=== PATIENT | female | born 1960 | race Caucasian/White ===

== ENCOUNTER 2019-08-10 13:38 | Emergency (ER) | payer MEDICAID ==
[~2019-08-10] VITALS: Ht 162.6 cm; Wt 137.0 kg
[~2019-08-10 13:38] MED LIST: METH-360 PO; ONDA8TAB9 PO
[2019-08-10 14:32] LABS: BASOPHILS % (AUTO) 0.4 % (0-1); EOSINOPHILS # (AUTO) 0.2 X10'3 (0-0.9); EOSINOPHILS % (AUTO) 2.8 % (0-6); HEMATOCRIT 33.6 % (35.0-45.0); HEMOGLOBIN 11.3 g/dl (12.0-16.0); LYMPHOCYTES # (AUTO) 1.2 X10'3 (1.1-4.8); LYMPHOCYTES % (AUTO) 14.5 % (21-51); MEAN CORPUSCULAR HEMOGLOBIN 27.7 PG (27.0-31.0); MEAN CORPUSCULAR HGB CONC 33.7 g/dL (33.0-36.5); MEAN CORPUSCULAR VOLUME 82.2 FL (78-98); MEAN PLATELET VOLUME 7.3 FL (7.4-10.4); MONOCYTES # (AUTO) 0.3 X10'3 (0-0.9); MONOCYTES % (AUTO) 4.2 % (2-12); NEUTROPHILS # (AUTO) 6.5 X10'3 (1.8-7.7); NEUTROPHILS % (AUTO) 78.1 % (42-75); PLATELET COUNT 341 X10'3 (140-440); RED BLOOD COUNT 4.08 X10'6 (4.20-5.60); RED CELL DISTRIBUTION WIDTH 16.2 % (11.5-14.5); WHITE BLOOD COUNT 8.3 X10'3 (4.5-11.0)
[2019-08-10 14:46] LABS: ALANINE AMINOTRANSFERASE 30 U/L (12-78); ALBUMIN 2.9 G/DL (3.4-5.0); ALBUMIN/GLOBULIN RATIO 0.8 (1.1-1.5); ALKALINE PHOSPHATASE 94 IU/L (46-116); ANION GAP 8 (8-16); ASPARTATE AMINO TRANSFERASE 19 U/L (10-37); BILIRUBIN,TOTAL 0.6 MG/DL (0.1-1.0); BLOOD UREA NITROGEN 11 MG/DL (7-18); BUN/CREATININE RATIO 11.5 (6.6-38.0); CALCIUM 8.4 MG/DL (8.5-10.1); CHLORIDE 106 MMOL/L (99-107); CREATININE 0.96 MG/DL (0.40-0.90); GLUCOSE 197 MG/DL (70-104); POTASSIUM 3.9 MMOL/L (3.5-5.1); SODIUM 140 MMOL/L (135-145); TOTAL CARBON DIOXIDE 26.3 MMOL/L (24-32); TOTAL PROTEIN 6.6 G/DL (6.4-8.2); eGFR 60 ML/MIN
[2019-08-10 15:37] VITALS: BP 151/62
== END 2019-08-10 15:41 | disposition home or self-care (01) ==
LOC: ER 13:38
DX: K51.90 Ulcerative colitis, unspecified, without complications (principal); R07.89 Other chest pain; I10 Essential (primary) hypertension; E11.9 Type 2 diabetes mellitus without complications; G89.29 Other chronic pain; F10.99 Alcohol use, unspecified with unspecified alcohol-induced disorder; Z86.2 Personal history of diseases of the blood and blood-forming organs and certain disorders involving the immune mechanism; Z88.8 Allergy status to other drugs, medicaments and biological substances; Z91.040 Latex allergy status; Z88.0 Allergy status to penicillin; Z79.899 Other long term (current) drug therapy; Y90.9 Presence of alcohol in blood, level not specified
CPT/HCPCS: 36415; 71045; 80053; 84484; 85025; 93005; 99284

== ENCOUNTER 2020-07-08 14:02 | Outpatient (CLI) | payer MEDICAID | END 2020-07-08 23:59 | disposition home or self-care (01) | LOC: RT 14:02 | PROVIDERS: ATTEND Physician Assistant | DX: R94.2 Abnormal results of pulmonary function studies (principal); J45.909 Unspecified asthma, uncomplicated | CPT/HCPCS: 94010 ==

== ENCOUNTER 2020-08-04 16:23 | Emergency (ER) | payer MEDICAID ==
[~2020-08-04] VITALS: Ht 160 cm; Wt 131.4 kg
[2020-08-04 16:41] VITALS: BP 188/71
== END 2020-08-04 18:29 | disposition home or self-care (01) ==
LOC: ER 16:23
DX: M25.561 Pain in right knee (principal); I10 Essential (primary) hypertension; G89.29 Other chronic pain; E11.9 Type 2 diabetes mellitus without complications; Z72.89 Other problems related to lifestyle; Z91.040 Latex allergy status; Z88.0 Allergy status to penicillin; Z88.8 Allergy status to other drugs, medicaments and biological substances; Z79.2 Long term (current) use of antibiotics; Z79.899 Other long term (current) drug therapy; Y93.89 Activity, other specified; Y92.89 Other specified places as the place of occurrence of the external cause; Y99.8 Other external cause status
CPT/HCPCS: 73564; 73610; 99284

== ENCOUNTER 2021-02-01 16:28 | Emergency (ER) | payer MEDICAID ==
[~2021-02-01] VITALS: Ht 160 cm; Wt 134.0 kg
[2021-02-01 16:41] VITALS: BP 176/75
[2021-02-01] MEDS ORDERED: ondansetron 4mg rapidly disintigrating tab PO ONE (18:55)
[2021-02-01] MEDS ORDERED: clindamycin 150mg capsule PO ONE (18:55)
[2021-02-01] MEDS ORDERED: triamcinolone acetonide 40mg/ml inj IM ONE (18:55)
[2021-02-01] MEDS ORDERED: ipratropium/albuterol 3ml nebule NEB ONE (18:55)
[2021-02-01] MEDS ORDERED: CLIN150C8 PO (18:56)
== END 2021-02-01 19:56 | disposition home or self-care (01) ==
LOC: ER 16:28
DX: L25.9 Unspecified contact dermatitis, unspecified cause (principal); K08.89 Other specified disorders of teeth and supporting structures; R21 Rash and other nonspecific skin eruption; I10 Essential (primary) hypertension; E11.9 Type 2 diabetes mellitus without complications; G89.29 Other chronic pain; Z86.2 Personal history of diseases of the blood and blood-forming organs and certain disorders involving the immune mechanism; Z72.89 Other problems related to lifestyle; Z88.8 Allergy status to other drugs, medicaments and biological substances; Z88.0 Allergy status to penicillin; Z88.6 Allergy status to analgesic agent; Z91.040 Latex allergy status; Z79.2 Long term (current) use of antibiotics; Z79.899 Other long term (current) drug therapy
CPT/HCPCS: 94640; 96372; 99283; J3301; 94760

== ENCOUNTER 2022-12-15 05:04 | Emergency (ER) | payer MEDICAID ==
[~2022-12-15] VITALS: Ht 160 cm; Wt 130.0 kg
[~2022-12-15 05:04] MED LIST changes: +CLIN150C8 PO
--- NOTE | 2022-12-15 05:45 | NUR ---
Approached by Fawad YOON to hold off on lab work for now.
[2022-12-15] MEDS ORDERED: meclizine 12.5mg tablet PO ONE (05:55)
[2022-12-15] MEDS ORDERED: ondansetron 4mg rapidly disintigrating tab PO ONE (05:55)
[2022-12-15] MEDS ORDERED: MECL-226 PO (06:00)
[2022-12-15] MEDS ORDERED: ONDA8TAB13 PO (06:00)
[2022-12-15] MEDS ORDERED: normal saline 1000ml 1,000 ML IV ONE (06:25)
--- NOTE | 2022-12-15 07:20 | NUR ---
rn attempting to get iv. unsuccessful and pt is afraid of needles. pt req 2nd rn try.
--- NOTE | 2022-12-15 07:40 | NUR ---
RN UNABLE TO SIGN OFF NS WITH SCANNER. WORK ORD PLACED.
[2022-12-15 07:51] LABS: BASOPHILS % (AUTO) 0.7 % (0-1); EOSINOPHILS % (AUTO) 0.2 % (0-6); HEMATOCRIT 31.8 % (35.0-45.0); HEMOGLOBIN 10.4 g/dl (12.0-16.0); LYMPHOCYTES # (AUTO) 0.9 X10'3 (1.1-4.8); LYMPHOCYTES % (AUTO) 14.6 % (21-51); MEAN CORPUSCULAR HEMOGLOBIN 26.5 PG (27.0-31.0); MEAN CORPUSCULAR HGB CONC 32.6 g/dL (33.0-36.5); MEAN CORPUSCULAR VOLUME 81.2 FL (78-98); MEAN PLATELET VOLUME 7.4 FL (7.4-10.4); MONOCYTES # (AUTO) 0.4 X10'3 (0-0.9); MONOCYTES % (AUTO) 5.8 % (2-12); NEUTROPHILS # (AUTO) 4.9 X10'3 (1.8-7.7); NEUTROPHILS % (AUTO) 78.7 % (42-75); PLATELET COUNT 293 X10'3 (140-440); RED BLOOD COUNT 3.92 X10'6 (4.20-5.60); RED CELL DISTRIBUTION WIDTH 14.4 % (11.5-14.5); WHITE BLOOD COUNT 6.2 X10'3 (4.5-11.0)
[2022-12-15 07:58] LABS: ALANINE AMINOTRANSFERASE 11 U/L (12-78); ALBUMIN 3.2 G/DL (3.4-5.0); ALBUMIN/GLOBULIN RATIO 0.8 (1.1-1.5); ALKALINE PHOSPHATASE 128 IU/L (46-116); ANION GAP 7 (8-16); ASPARTATE AMINO TRANSFERASE 12 U/L (10-37); BILIRUBIN,TOTAL 0.5 MG/DL (0.1-1.0); BLOOD UREA NITROGEN 13 MG/DL (7-18); CALCIUM 8.5 MG/DL (8.5-10.1); CHLORIDE 101 MMOL/L (99-107); CREATININE 1.08 MG/DL (0.40-0.90); GLUCOSE 159 MG/DL (70-104); POTASSIUM 4.1 MMOL/L (3.5-5.1); SODIUM 135 MMOL/L (135-145); TOTAL CARBON DIOXIDE 27.4 MMOL/L (24-32); eGFR 52 ML/MIN
[2022-12-15 09:45] LABS: CLARITY,URINE SLIGHTLY CLOUDY (Clear); COLOR,URINE STRAW (Yellow); GLUCOSE, URINE NEGATIVE (Neg); KETONES,URINE NEGATIVE (Neg); LEUKOCYTE ESTERASE ,URINE NEGATIVE (Neg); NITRITES, URINE NEGATIVE (Neg); OCCULT BLOOD,URINE TRACE-INTACT (Neg); PH,URINE 5.5 (4.8-8.0); PROTEIN,URINE NEGATIVE (Neg); UROBILINOGEN,URINE 0.2 E.U/dL (0.2-1.0)
[2022-12-15 09:56] LABS: UA COLLECTION TYPE CLN CATCH MIDSTREAM
[2022-12-15 09:59] LABS: SQUAMOUS EPITHELIAL CELL,UR MANY /LPF (FEW)
[2022-12-15 10:01] LABS: BACTERIA,URINE 1+ /HPF (Neg)
[2022-12-15 10:03] LABS: RBC,URINE 0-2 /HPF (0-2); WBC,URINE 0-4 /HPF (0-4)
--- NOTE | 2022-12-15 10:13 | NUR ---
PT PASSED GAIT TEST WITH NO C/O DIZZINESS. RN NOTIFIED DR LORA. PT IS READY FOR DISCHARGE.
[2022-12-15 11:01] VITALS: BP 138/69
== END 2022-12-15 11:05 | disposition home or self-care (01) ==
LOC: ER 05:05
DX: I95.9 Hypotension, unspecified (principal); R42 Dizziness and giddiness; G43.909 Migraine, unspecified, not intractable, without status migrainosus; I10 Essential (primary) hypertension; J45.909 Unspecified asthma, uncomplicated; M19.90 Unspecified osteoarthritis, unspecified site; E11.42 Type 2 diabetes mellitus with diabetic polyneuropathy; G89.29 Other chronic pain; Z72.89 Other problems related to lifestyle; Z88.0 Allergy status to penicillin; Z88.1 Allergy status to other antibiotic agents; Z91.040 Latex allergy status; Z79.899 Other long term (current) drug therapy
CPT/HCPCS: 36415; 71045; 80053; 81001; 83735; 83880; 84484; 85025; 93005; 99285; J7030; J8597

== ENCOUNTER 2023-06-16 23:58 | Inpatient (IN) | payer MEDICAID ==
[~2023-06-16] VITALS: Ht 160 cm; Wt 131.3 kg
[~2023-06-16 23:58] MED LIST changes: +CLIN-214 PO; -CLIN150C8 PO; +MECL-226 PO; +ONDA8TAB13 PO
[2023-06-17 07:01] LABS: BASOPHILS % (AUTO) 0.2 % (0-1); EOSINOPHILS % (AUTO) 0.1 % (0-6); HEMATOCRIT 34.8 % (35.0-45.0); HEMOGLOBIN 11.9 g/dl (12.0-16.0); LYMPHOCYTES # (AUTO) 0.5 X10'3 (1.1-4.8); LYMPHOCYTES % (AUTO) 3.4 % (21-51); MEAN CORPUSCULAR HEMOGLOBIN 32.2 PG (27.0-31.0); MEAN CORPUSCULAR HGB CONC 34.1 g/dL (33.0-36.5); MEAN CORPUSCULAR VOLUME 94.5 FL (78-98); MEAN PLATELET VOLUME 7.3 FL (7.4-10.4); MONOCYTES # (AUTO) 0.7 X10'3 (0-0.9); MONOCYTES % (AUTO) 4.4 % (2-12); NEUTROPHILS # (AUTO) 14.3 X10'3 (1.8-7.7); NEUTROPHILS % (AUTO) 91.9 % (42-75); PLATELET COUNT 207 X10'3 (140-440); RED BLOOD COUNT 3.68 X10'6 (4.20-5.60); RED CELL DISTRIBUTION WIDTH 17.4 % (11.5-14.5); WHITE BLOOD COUNT 15.5 X10'3 (4.5-11.0)
[2023-06-17 07:12] LABS: ALANINE AMINOTRANSFERASE 63 U/L (12-78); ALBUMIN 3.2 G/DL (3.4-5.0); ALKALINE PHOSPHATASE 88 IU/L (46-116); ANION GAP 7 (8-16); ASPARTATE AMINO TRANSFERASE 28 U/L (10-37); BILIRUBIN,TOTAL 1.8 MG/DL (0.1-1.0); BLOOD UREA NITROGEN 18 MG/DL (7-18); BUN/CREATININE RATIO 14.8 (10.0-20.0); CALCIUM 8.9 MG/DL (8.5-10.1); CHLORIDE 100 MMOL/L (99-107); CREATININE 1.22 MG/DL (0.40-0.90); GLUCOSE 312 MG/DL (70-104); POTASSIUM 3.8 MMOL/L (3.5-5.1); SODIUM 137 MMOL/L (135-145); TOTAL PROTEIN 6.4 G/DL (6.4-8.2); eCRCL 40 ML/MIN; eGFR 45 ML/MIN
[2023-06-17] MEDS ORDERED: CefTRIAXone/D5W-Rocephin 1gm 50 ML IV ONE (08:05)
[2023-06-17] MEDS ORDERED: levoFLOXACIN-Levaquin 750MG/D5 150 ML IV STA (08:08)
[2023-06-17] MEDS ORDERED: MESSAGE TO PHARMACY PO ONE (08:10)
[2023-06-17] MEDS ORDERED: potassium Cl 20 mEq SR tablet PO PRN (08:10)
[2023-06-17] MEDS ORDERED: dextrose 50%-water 50ml dispensing syringe IV PRN ×2 (08:10)
[2023-06-17] MEDS ORDERED: glucagon, human recombinant 1mg kit SUBCUT PRN (08:10)
[2023-06-17] MEDS ORDERED: DEXTROSE 15 GM of carb/4 tabs (each vial/BOTTLE has 4 tablets) PO PRN ×2 (08:10)
[2023-06-17] MEDS ORDERED: magnesium 4gm in 100ml NS 100 ML IV PRN (08:10)
[2023-06-17] MEDS ORDERED: potassium Cl 40MEQ/1/2NS 520ml 520 ML IV PRN (08:10)
[2023-06-17] MEDS ORDERED: magnesium 2GM in 50ml NS 50 ML IV PRN (08:10)
[2023-06-17] MEDS ORDERED: mag hydrox/Alum hydrox/simeth 30ml oral suspension PO PRN (08:10)
[2023-06-17] MEDS ORDERED: ondansetron/PF 4mg/2ml inj IV PRN (08:10)
[2023-06-17] MEDS ORDERED: HYDROmorphone 1 mg/ml syringe IV PRN (09:50)
[2023-06-17] MEDS ORDERED: HYDROmorphone inj. 0.5 MG/0.5 ML DISP.SYRIN IV PRN (09:50)
[2023-06-17] MEDS: acetaminophen 325mg tablet PO PRN (15:34)
[2023-06-17] MEDS: metroNIDAZOLE-Flagyl 750mg/NS 150 ML IV SCH (16:20)
[2023-06-17 19:00] VITALS: BP 133/78; PULSE 86; RESP 18; TEMP 98.9; O2SAT 97
[2023-06-17] MEDS: insulin Lispro (HumaLOG) vial - multi-dose SQ SCH ×2 (19:46→22:34)
[2023-06-17 20:00] VITALS: RESP 20; O2SAT 98
[2023-06-17] MEDS: docusate sod 100mg capsule PO SCH (20:00)
[2023-06-17] MEDS: K and/or MAG REPLACEMENT MC SCH (20:00)
[2023-06-17] MEDS: enoxaparin 40mg/0.4ml syringe SQ SCH (20:00)
[2023-06-17] MEDS ORDERED: NORT25CA PO (21:39)
[2023-06-17] MEDS ORDERED: GLIP2.5T3 PO ×2 (21:39→21:52)
[2023-06-17] MEDS ORDERED: PROP10DR5 LEFTEYE (21:41)
[2023-06-17] MEDS ORDERED: ROPI0.5T37 PO (21:42)
[2023-06-17] MEDS ORDERED: PRAV20TA4 PO (21:45)
[2023-06-17] MEDS ORDERED: METH2.5T PO (21:45)
[2023-06-17] MEDS ORDERED: FAMO20TA9 PO (21:49)
[2023-06-17] MEDS ORDERED: BUDE0.5A11 NEB (21:49)
[2023-06-17] MEDS ORDERED: PANT-47 PO (21:52)
[2023-06-17] MEDS ORDERED: DILT360C24 PO (21:56)
[2023-06-17] MEDS ORDERED: TORS20TA3 PO (21:56)
[2023-06-17] MEDS ORDERED: DIPH1TAB PO (21:56)
[2023-06-17] MEDS ORDERED: ALB0.5UD IH (21:58)
[2023-06-17] MEDS ORDERED: NITR0.4T51 SL (21:59)
[2023-06-17 22:00] VITALS: BP 169/48; PULSE 83; RESP 22; TEMP 99.3; O2SAT 97
[2023-06-17] MEDS ORDERED: GABA-530 PO (22:04)
[2023-06-17] MEDS ORDERED: BECL10.6 INH (22:04)
[2023-06-17] MEDS ORDERED: LOSA-415 PO (22:04)
[2023-06-17 22:30] VITALS: BP 155/65
[2023-06-17] MEDS: insulin glargine (Lantus) pen - multi-dose SQ SCH (22:31)
[2023-06-18] MEDS: metroNIDAZOLE-Flagyl 750mg/NS 150 ML IV SCH ×3 (00:06→17:08)
[2023-06-18] MEDS: acetaminophen 325mg tablet PO PRN ×3 (05:15→20:23)
[2023-06-18 06:00] VITALS: BP 133/63; PULSE 98; RESP 17; TEMP 98.7; O2SAT 100
[2023-06-18 07:04] LABS: BASOPHILS % (AUTO) 0.2 % (0-1); EOSINOPHILS % (AUTO) 0.2 % (0-6); HEMATOCRIT 28.7 % (35.0-45.0); HEMOGLOBIN 9.9 g/dl (12.0-16.0); LYMPHOCYTES # (AUTO) 0.9 X10'3 (1.1-4.8); LYMPHOCYTES % (AUTO) 8.1 % (21-51); MEAN CORPUSCULAR HEMOGLOBIN 32.4 PG (27.0-31.0); MEAN CORPUSCULAR HGB CONC 34.5 g/dL (33.0-36.5); MEAN PLATELET VOLUME 7.7 FL (7.4-10.4); MONOCYTES # (AUTO) 0.1 X10'3 (0-0.9); NEUTROPHILS # (AUTO) 9.9 X10'3 (1.8-7.7); NEUTROPHILS % (AUTO) 90.5 % (42-75); PLATELET COUNT 154 X10'3 (140-440); RED BLOOD COUNT 3.05 X10'6 (4.20-5.60); RED CELL DISTRIBUTION WIDTH 16.8 % (11.5-14.5)
[2023-06-18 07:39] LABS: ALANINE AMINOTRANSFERASE 49 U/L (12-78); ALBUMIN 2.4 G/DL (3.4-5.0); ALBUMIN/GLOBULIN RATIO 0.8 (1.1-1.5); ALKALINE PHOSPHATASE 80 IU/L (46-116); ANION GAP 8 (8-16); ASPARTATE AMINO TRANSFERASE 27 U/L (10-37); BILIRUBIN,TOTAL 1.3 MG/DL (0.1-1.0); BLOOD UREA NITROGEN 17 MG/DL (7-18); BUN/CREATININE RATIO 16.7 (10.0-20.0); CALCIUM 8.6 MG/DL (8.5-10.1); CHLORIDE 99 MMOL/L (99-107); CREATININE 1.02 MG/DL (0.40-0.90); GLUCOSE 202 MG/DL (70-104); MAGNESIUM 1.7 MG/DL (1.5-2.4); POTASSIUM 3.6 MMOL/L (3.5-5.1); SODIUM 134 MMOL/L (135-145); TOTAL CARBON DIOXIDE 27.4 MMOL/L (24-32); TOTAL PROTEIN 5.5 G/DL (6.4-8.2); eCRCL 48 ML/MIN; eGFR 55 ML/MIN
[2023-06-18] MEDS: K and/or MAG REPLACEMENT MC SCH ×2 (08:00→20:00)
[2023-06-18 10:00] VITALS: BP 134/68; PULSE 92; RESP 20; TEMP 97.6; O2SAT 99
[2023-06-18] MEDS ORDERED: levoFLOXACIN 750MG TABLET PO SCH (11:00)
[2023-06-18] MEDS: docusate sod 100mg capsule PO SCH ×2 (11:33→20:00)
[2023-06-18 18:00] VITALS: BP 144/61; PULSE 96; RESP 17; TEMP 96.7; O2SAT 100
[2023-06-18] MEDS ORDERED: non-formulary drug (Ondansetron (Zofran Odt) 8 MG) PO PRN (19:15)
[2023-06-18] MEDS: budesonide 0.5mg/2ml UD nebule IH SCH (20:00)
[2023-06-18] MEDS: METHOCARBAMOL PO SCH (20:00)
[2023-06-18] MEDS: famotidine 20mg tablet PO SCH (20:00)
[2023-06-18] MEDS: diphenoxylate/atropine tablet (Lomotil) PO SCH ×2 (20:00→22:53)
[2023-06-18] MEDS: enoxaparin 40mg/0.4ml syringe SQ SCH (20:00)
[2023-06-18] MEDS ORDERED: non-formulary drug (Beclomethasone Dipropionate (Qvar Redihaler) 2 PUFFS) INH SCH (20:00)
[2023-06-18] MEDS: insulin Lispro (HumaLOG) vial - multi-dose SQ SCH (20:04)
[2023-06-18] MEDS: nortriptyline 25mg capsule PO SCH (20:15)
[2023-06-18] MEDS: ROPINIRole 0.25mg tablet PO SCH (20:16)
[2023-06-18] MEDS: meclizine 12.5mg tablet PO SCH (20:17)
[2023-06-18] MEDS: polyvinyl alcohol ophthalmic drops 15ml bottle LEFTEYE SCH (20:19)
[2023-06-18 21:06] VITALS: PULSE 103; RESP 18; O2SAT 97
[2023-06-18] MEDS: insulin glargine (Lantus) pen - multi-dose SQ SCH (21:54)
[2023-06-18 22:00] VITALS: BP 118/61; PULSE 98; RESP 18; TEMP 97.8; O2SAT 98
[2023-06-18] MEDS: gabapentin 100mg capsule PO SCH (23:51)
[2023-06-19] VITALS (8 sets, daily range): BP systolic 123–172; BP diastolic 52–77; PULSE 83–99; RESP 16–20; TEMP 97.6–98.9; O2SAT 96–100
[2023-06-19] MEDS: metroNIDAZOLE-Flagyl 750mg/NS 150 ML IV SCH ×4 (00:31→23:51)
[2023-06-19] MEDS: acetaminophen 325mg tablet PO PRN ×3 (03:34→23:52)
[2023-06-19 06:06] LABS: BASOPHILS % (AUTO) 0.2 % (0-1); EOSINOPHILS # (AUTO) 0.1 X10'3 (0-0.9); HEMATOCRIT 28.4 % (35.0-45.0); HEMOGLOBIN 9.7 g/dl (12.0-16.0); LYMPHOCYTES # (AUTO) 0.7 X10'3 (1.1-4.8); LYMPHOCYTES % (AUTO) 10.6 % (21-51); MEAN CORPUSCULAR HEMOGLOBIN 32.1 PG (27.0-31.0); MEAN CORPUSCULAR VOLUME 94.2 FL (78-98); MEAN PLATELET VOLUME 7.5 FL (7.4-10.4); MONOCYTES # (AUTO) 0.1 X10'3 (0-0.9); MONOCYTES % (AUTO) 1.2 % (2-12); NEUTROPHILS # (AUTO) 5.7 X10'3 (1.8-7.7); PLATELET COUNT 152 X10'3 (140-440); RED BLOOD COUNT 3.01 X10'6 (4.20-5.60); RED CELL DISTRIBUTION WIDTH 16.7 % (11.5-14.5); WHITE BLOOD COUNT 6.6 X10'3 (4.5-11.0)
[2023-06-19 06:27] LABS: ALANINE AMINOTRANSFERASE 37 U/L (12-78); ALBUMIN 2.1 G/DL (3.4-5.0); ALBUMIN/GLOBULIN RATIO 0.7 (1.1-1.5); ALKALINE PHOSPHATASE 68 IU/L (46-116); ANION GAP 7 (8-16); ASPARTATE AMINO TRANSFERASE 14 U/L (10-37); BILIRUBIN,TOTAL 0.7 MG/DL (0.1-1.0); BLOOD UREA NITROGEN 17 MG/DL (7-18); BUN/CREATININE RATIO 17.3 (10.0-20.0); CALCIUM 8.5 MG/DL (8.5-10.1); CHLORIDE 101 MMOL/L (99-107); CREATININE 0.98 MG/DL (0.40-0.90); GLUCOSE 201 MG/DL (70-104); MAGNESIUM 1.7 MG/DL (1.5-2.4); POTASSIUM 3.3 MMOL/L (3.5-5.1); SODIUM 134 MMOL/L (135-145); TOTAL CARBON DIOXIDE 26.2 MMOL/L (24-32); TOTAL PROTEIN 5.2 G/DL (6.4-8.2); eCRCL 50 ML/MIN; eGFR 58 ML/MIN
[2023-06-19] MEDS: docusate sod 100mg capsule PO SCH ×2 (08:00→20:00)
[2023-06-19] MEDS: losartan 25mg tablet PO SCH (08:00)
[2023-06-19] MEDS: budesonide 0.5mg/2ml UD nebule IH SCH ×2 (08:00→19:27)
[2023-06-19] MEDS: METHOCARBAMOL PO SCH ×2 (08:00→20:00)
[2023-06-19] MEDS: K and/or MAG REPLACEMENT MC SCH ×2 (08:00→20:00)
[2023-06-19] MEDS: famotidine 20mg tablet PO SCH (08:00)
[2023-06-19] MEDS: meclizine 12.5mg tablet PO SCH ×3 (08:00→23:51)
[2023-06-19] MEDS: diphenoxylate/atropine tablet (Lomotil) PO SCH ×3 (08:00→20:00)
[2023-06-19] MEDS: insulin Lispro (HumaLOG) vial - multi-dose SQ SCH ×3 (08:43→19:05)
[2023-06-19] MEDS: diltiazem CD 180mg cap (once-daily) PO SCH (08:51)
[2023-06-19] MEDS: gabapentin 100mg capsule PO SCH ×2 (08:54→20:48)
[2023-06-19] MEDS: atorvastatin 10mg tablet PO SCH (08:54)
[2023-06-19] MEDS: pantoprazole 40mg Tablet.DR PO SCH (08:56)
[2023-06-19] MEDS: potassium Cl 20 mEq SR tablet PO PRN ×3 (09:21→20:50)
[2023-06-19] MEDS: enoxaparin 40mg/0.4ml syringe SQ SCH (20:00)
[2023-06-19] MEDS: nortriptyline 25mg capsule PO SCH (20:50)
[2023-06-19] MEDS: ROPINIRole 0.25mg tablet PO SCH (20:50)
[2023-06-19] MEDS: polyvinyl alcohol ophthalmic drops 15ml bottle LEFTEYE SCH (20:57)
[2023-06-19] MEDS: insulin glargine (Lantus) pen - multi-dose SQ SCH (21:34)
[2023-06-20] VITALS (10 sets, daily range): BP systolic 130–150; BP diastolic 40–54; PULSE 78–89; RESP 16–18; TEMP 96.8–97.7; O2SAT 98–99
[2023-06-20] MEDS: diphenoxylate/atropine tablet (Lomotil) PO SCH ×4 (02:00→20:00)
[2023-06-20 06:25] LABS: BASOPHILS % (AUTO) 0.4 % (0-1); EOSINOPHILS % (AUTO) 1.4 % (0-6); HEMATOCRIT 26.5 % (35.0-45.0); HEMOGLOBIN 9.1 g/dl (12.0-16.0); LYMPHOCYTES # (AUTO) 0.6 X10'3 (1.1-4.8); LYMPHOCYTES % (AUTO) 17.7 % (21-51); MEAN CORPUSCULAR HEMOGLOBIN 32.2 PG (27.0-31.0); MEAN CORPUSCULAR HGB CONC 34.3 g/dL (33.0-36.5); MEAN CORPUSCULAR VOLUME 93.8 FL (78-98); MEAN PLATELET VOLUME 7.5 FL (7.4-10.4); MONOCYTES # (AUTO) 0.1 X10'3 (0-0.9); MONOCYTES % (AUTO) 3.2 % (2-12); NEUTROPHILS # (AUTO) 2.4 X10'3 (1.8-7.7); NEUTROPHILS % (AUTO) 77.3 % (42-75); PLATELET COUNT 177 X10'3 (140-440); RED BLOOD COUNT 2.82 X10'6 (4.20-5.60); RED CELL DISTRIBUTION WIDTH 16.6 % (11.5-14.5); WHITE BLOOD COUNT 3.1 X10'3 (4.5-11.0)
[2023-06-20 06:42] LABS: ALANINE AMINOTRANSFERASE 26 U/L (12-78); ALBUMIN/GLOBULIN RATIO 0.6 (1.1-1.5); ALKALINE PHOSPHATASE 54 IU/L (46-116); ANION GAP 4 (8-16); ASPARTATE AMINO TRANSFERASE 10 U/L (10-37); BILIRUBIN,TOTAL 0.6 MG/DL (0.1-1.0); BLOOD UREA NITROGEN 15 MG/DL (7-18); BUN/CREATININE RATIO 16.1 (10.0-20.0); CALCIUM 8.3 MG/DL (8.5-10.1); CHLORIDE 102 MMOL/L (99-107); CREATININE 0.93 MG/DL (0.40-0.90); GLUCOSE 181 MG/DL (70-104); MAGNESIUM 1.7 MG/DL (1.5-2.4); POTASSIUM 3.8 MMOL/L (3.5-5.1); SODIUM 133 MMOL/L (135-145); TOTAL CARBON DIOXIDE 26.8 MMOL/L (24-32); TOTAL PROTEIN 5.2 G/DL (6.4-8.2); eCRCL 53 ML/MIN; eGFR 61 ML/MIN
[2023-06-20] MEDS: budesonide 0.5mg/2ml UD nebule IH SCH ×2 (07:33→19:51)
[2023-06-20] MEDS: METHOCARBAMOL PO SCH ×2 (08:00→20:00)
[2023-06-20] MEDS: K and/or MAG REPLACEMENT MC SCH ×2 (08:00→19:26)
[2023-06-20] MEDS: docusate sod 100mg capsule PO SCH ×2 (08:00→20:00)
[2023-06-20] MEDS: meclizine 12.5mg tablet PO SCH ×2 (08:00→16:00)
[2023-06-20] MEDS: insulin Lispro (HumaLOG) vial - multi-dose SQ SCH ×3 (08:45→19:31)
[2023-06-20] MEDS: metroNIDAZOLE-Flagyl 750mg/NS 150 ML IV SCH ×2 (08:48→16:30)
[2023-06-20] MEDS: diltiazem CD 180mg cap (once-daily) PO SCH (08:53)
[2023-06-20] MEDS: losartan 25mg tablet PO SCH (08:53)
[2023-06-20] MEDS: atorvastatin 10mg tablet PO SCH (08:53)
[2023-06-20] MEDS: gabapentin 100mg capsule PO SCH ×2 (08:54→19:31)
[2023-06-20] MEDS: pantoprazole 40mg Tablet.DR PO SCH (08:54)
[2023-06-20] MEDS: levoFLOXACIN 750MG TABLET PO SCH (11:42)
[2023-06-20] MEDS: enoxaparin 40mg/0.4ml syringe SQ SCH (20:00)
[2023-06-20] MEDS: insulin glargine (Lantus) pen - multi-dose SQ SCH (21:00)
[2023-06-20] MEDS: ROPINIRole 0.25mg tablet PO SCH (21:00)
[2023-06-20] MEDS: nortriptyline 25mg capsule PO SCH (21:00)
[2023-06-20] MEDS: polyvinyl alcohol ophthalmic drops 15ml bottle LEFTEYE SCH (21:00)
[2023-06-21] VITALS (10 sets, daily range): BP systolic 108–135; BP diastolic 40–70; PULSE 78–98; RESP 14–20; TEMP 97–98.1; O2SAT 85–100
[2023-06-21] MEDS: metroNIDAZOLE-Flagyl 750mg/NS 150 ML IV SCH ×3 (00:04→17:37)
[2023-06-21] MEDS: meclizine 12.5mg tablet PO SCH ×4 (00:04→16:00)
[2023-06-21] MEDS: diphenoxylate/atropine tablet (Lomotil) PO SCH ×4 (02:00→20:00)
[2023-06-21 06:07] LABS: BASOPHILS % (AUTO) 0.7 % (0-1); HEMATOCRIT 25.9 % (35.0-45.0); HEMOGLOBIN 8.9 g/dl (12.0-16.0); LYMPHOCYTES # (AUTO) 0.6 X10'3 (1.1-4.8); LYMPHOCYTES % (AUTO) 17.5 % (21-51); MEAN CORPUSCULAR HEMOGLOBIN 32.2 PG (27.0-31.0); MEAN CORPUSCULAR HGB CONC 34.4 g/dL (33.0-36.5); MEAN CORPUSCULAR VOLUME 93.6 FL (78-98); MONOCYTES # (AUTO) 0.3 X10'3 (0-0.9); NEUTROPHILS # (AUTO) 2.4 X10'3 (1.8-7.7); NEUTROPHILS % (AUTO) 72.8 % (42-75); PLATELET COUNT 182 X10'3 (140-440); RED BLOOD COUNT 2.77 X10'6 (4.20-5.60); RED CELL DISTRIBUTION WIDTH 16.9 % (11.5-14.5); WHITE BLOOD COUNT 3.4 X10'3 (4.5-11.0)
[2023-06-21 06:31] LABS: ALANINE AMINOTRANSFERASE 23 U/L (12-78); ALBUMIN/GLOBULIN RATIO 0.6 (1.1-1.5); ALKALINE PHOSPHATASE 57 IU/L (46-116); ANION GAP 7 (8-16); ASPARTATE AMINO TRANSFERASE 16 U/L (10-37); BILIRUBIN,TOTAL 0.7 MG/DL (0.1-1.0); BLOOD UREA NITROGEN 11 MG/DL (7-18); BUN/CREATININE RATIO 12.2 (10.0-20.0); CALCIUM 8.2 MG/DL (8.5-10.1); CHLORIDE 100 MMOL/L (99-107); GLUCOSE 179 MG/DL (70-104); MAGNESIUM 1.6 MG/DL (1.5-2.4); POTASSIUM 3.6 MMOL/L (3.5-5.1); SODIUM 133 MMOL/L (135-145); TOTAL CARBON DIOXIDE 26.5 MMOL/L (24-32); TOTAL PROTEIN 5.5 G/DL (6.4-8.2); eCRCL 54 ML/MIN; eGFR 64 ML/MIN
[2023-06-21] MEDS: budesonide 0.5mg/2ml UD nebule IH SCH ×2 (07:10→21:01)
[2023-06-21 07:46] LABS: ANISOCYTOSIS 1+; PLATELET ESTIMATE NORMAL
[2023-06-21 07:47] LABS: ELLIPTOCYTES FEW; POLYCHROMASIA FEW; SPHEROCYTES FEW
[2023-06-21] MEDS: METHOCARBAMOL PO SCH ×2 (08:00→20:00)
[2023-06-21] MEDS: pantoprazole 40mg Tablet.DR PO SCH ×2 (08:00→20:08)
[2023-06-21] MEDS: docusate sod 100mg capsule PO SCH (08:00)
[2023-06-21] MEDS: atorvastatin 10mg tablet PO SCH (08:00)
[2023-06-21] MEDS: losartan 25mg tablet PO SCH ×2 (08:00→20:09)
[2023-06-21] MEDS: K and/or MAG REPLACEMENT MC SCH ×2 (08:00→19:56)
[2023-06-21] MEDS: gabapentin 100mg capsule PO SCH ×2 (10:22→20:08)
[2023-06-21] MEDS: diltiazem CD 180mg cap (once-daily) PO SCH (10:22)
[2023-06-21] MEDS: insulin Lispro (HumaLOG) vial - multi-dose SQ SCH ×2 (10:43→19:35)
[2023-06-21] MEDS: acetaminophen 325mg tablet PO PRN (17:37)
[2023-06-21] MEDS: enoxaparin 40mg/0.4ml syringe SQ SCH (20:00)
[2023-06-21] MEDS: polyvinyl alcohol ophthalmic drops 15ml bottle LEFTEYE SCH (21:00)
[2023-06-21] MEDS: nortriptyline 25mg capsule PO SCH (21:53)
[2023-06-21] MEDS: ROPINIRole 0.25mg tablet PO SCH (21:53)
[2023-06-21] MEDS: insulin glargine (Lantus) pen - multi-dose SQ SCH (21:56)
[2023-06-22] VITALS (9 sets, daily range): BP systolic 117–130; BP diastolic 36–60; PULSE 82–95; RESP 12–24; TEMP 98.3–100; O2SAT 94–100
[2023-06-22] MEDS: metroNIDAZOLE-Flagyl 750mg/NS 150 ML IV SCH ×3 (00:14→15:21)
[2023-06-22] MEDS: diphenoxylate/atropine tablet (Lomotil) PO SCH ×4 (02:00→21:59)
[2023-06-22 06:38] LABS: HEMOGLOBIN 8.9 g/dl (12.0-16.0); MEAN CORPUSCULAR HGB CONC 34.7 g/dL (33.0-36.5); RED CELL DISTRIBUTION WIDTH 16.8 % (11.5-14.5)
[2023-06-22 06:41] LABS: BASOPHILS % (AUTO) 0.2 % (0-1); EOSINOPHILS # (AUTO) 0.1 X10'3 (0-0.9); HEMATOCRIT 25.6 % (35.0-45.0); LYMPHOCYTES # (AUTO) 0.6 X10'3 (1.1-4.8); LYMPHOCYTES % (AUTO) 8.6 % (21-51); MEAN CORPUSCULAR HEMOGLOBIN 32.3 PG (27.0-31.0); MONOCYTES # (AUTO) 0.5 X10'3 (0-0.9); MONOCYTES % (AUTO) 7.2 % (2-12); NEUTROPHILS # (AUTO) 5.3 X10'3 (1.8-7.7); PLATELET COUNT 182 X10'3 (140-440); RED BLOOD COUNT 2.75 X10'6 (4.20-5.60); WHITE BLOOD COUNT 6.4 X10'3 (4.5-11.0)
[2023-06-22 06:57] LABS: ALANINE AMINOTRANSFERASE 18 U/L (12-78); ALBUMIN 1.8 G/DL (3.4-5.0); ALBUMIN/GLOBULIN RATIO 0.5 (1.1-1.5); ALKALINE PHOSPHATASE 58 IU/L (46-116); ANION GAP 5 (8-16); ASPARTATE AMINO TRANSFERASE 16 U/L (10-37); BILIRUBIN,TOTAL 0.6 MG/DL (0.1-1.0); BLOOD UREA NITROGEN 9 MG/DL (7-18); BUN/CREATININE RATIO 11.1 (10.0-20.0); CALCIUM 8.2 MG/DL (8.5-10.1); CHLORIDE 99 MMOL/L (99-107); CREATININE 0.81 MG/DL (0.40-0.90); GLUCOSE 180 MG/DL (70-104); MAGNESIUM 1.6 MG/DL (1.5-2.4); POTASSIUM 3.6 MMOL/L (3.5-5.1); SODIUM 131 MMOL/L (135-145); TOTAL CARBON DIOXIDE 26.6 MMOL/L (24-32); TOTAL PROTEIN 5.2 G/DL (6.4-8.2); eCRCL 60 ML/MIN; eGFR 72 ML/MIN
[2023-06-22] MEDS: METHOCARBAMOL PO SCH ×2 (08:00→21:59)
[2023-06-22] MEDS: atorvastatin 10mg tablet PO SCH (08:00)
[2023-06-22] MEDS: K and/or MAG REPLACEMENT MC SCH ×2 (08:00→20:00)
[2023-06-22] MEDS: meclizine 12.5mg tablet PO SCH ×3 (08:00→19:09)
[2023-06-22] MEDS: budesonide 0.5mg/2ml UD nebule IH SCH ×2 (08:25→19:24)
[2023-06-22] MEDS: levoFLOXACIN 750MG TABLET PO SCH (10:31)
[2023-06-22] MEDS: gabapentin 100mg capsule PO SCH ×2 (10:31→21:59)
[2023-06-22] MEDS: diltiazem CD 180mg cap (once-daily) PO SCH (10:31)
[2023-06-22] MEDS: insulin Lispro (HumaLOG) vial - multi-dose SQ SCH ×3 (10:35→19:04)
[2023-06-22] MEDS ORDERED: iohexol 300mg/ml 100ml inj. ONE (13:07)
[2023-06-22] MEDS: vancomycin/NS 1 GM ADD-VANTAGE 250 ML IV SCH (19:00)
[2023-06-22] MEDS: polyvinyl alcohol ophthalmic drops 15ml bottle LEFTEYE SCH (21:00)
[2023-06-22] MEDS: cefepime 2g/NS 100ml ADVANTAGE 100 ML IV SCH (21:50)
[2023-06-22] MEDS: insulin glargine (Lantus) pen - multi-dose SQ SCH (21:58)
[2023-06-22] MEDS: enoxaparin 40mg/0.4ml syringe SQ SCH (21:59)
[2023-06-22] MEDS: losartan 25mg tablet PO SCH (22:18)
[2023-06-22] MEDS: ROPINIRole 0.25mg tablet PO SCH (23:37)
[2023-06-22] MEDS: pantoprazole 40mg Tablet.DR PO SCH (23:38)
[2023-06-22] MEDS: nortriptyline 25mg capsule PO SCH (23:38)
[2023-06-23] MEDS: diphenoxylate/atropine tablet (Lomotil) PO SCH ×4 (02:00→20:00)
[2023-06-23] MEDS: vancomycin/NS 1 GM ADD-VANTAGE 250 ML IV SCH ×3 (02:01→16:47)
[2023-06-23 06:00] VITALS: BP 129/51; PULSE 85; RESP 16; TEMP 97.8; O2SAT 98
[2023-06-23 08:00] VITALS: RESP 16; O2SAT 99
[2023-06-23] MEDS: METHOCARBAMOL PO SCH ×2 (08:00→20:00)
[2023-06-23] MEDS: K and/or MAG REPLACEMENT MC SCH ×2 (08:00→20:00)
[2023-06-23] MEDS: budesonide 0.5mg/2ml UD nebule IH SCH ×2 (08:00→19:56)
[2023-06-23] MEDS: meclizine 12.5mg tablet PO SCH ×3 (08:10→16:00)
[2023-06-23] MEDS: diltiazem CD 180mg cap (once-daily) PO SCH (08:12)
[2023-06-23] MEDS: pantoprazole 40mg Tablet.DR PO SCH (08:13)
[2023-06-23] MEDS: gabapentin 100mg capsule PO SCH ×2 (08:13→21:48)
[2023-06-23] MEDS: losartan 25mg tablet PO SCH (08:24)
[2023-06-23] MEDS: cefepime 2g/NS 100ml ADVANTAGE 100 ML IV SCH ×2 (08:33→20:32)
[2023-06-23] MEDS: PRAVASTATIN 20 MG PO SCH (08:36)
[2023-06-23 10:00] VITALS: BP 117/42; PULSE 84; RESP 16; TEMP 98.1; O2SAT 99
[2023-06-23] MEDS: insulin Lispro (HumaLOG) vial - multi-dose SQ SCH ×2 (10:05→14:07)
[2023-06-23] MEDS ORDERED: oxyCODONE/APAP 10/325mg tablet PO PRN (11:20)
[2023-06-23] MEDS ORDERED: morphine 2 MG/ML inj. syringe IV PRN (11:20)
[2023-06-23] MEDS ORDERED: VANCOMYCIN LEVEL IV ONE (16:30)
[2023-06-23 18:00] VITALS: BP 114/61; PULSE 97; RESP 20; TEMP 98.6; O2SAT 100
[2023-06-23] MEDS ORDERED: methoTREXATE 2.5mg tablet PO SCH (19:15)
[2023-06-23 20:00] VITALS: RESP 18; O2SAT 97
[2023-06-23] MEDS: enoxaparin 40mg/0.4ml syringe SQ SCH (20:00)
[2023-06-23] MEDS: polyvinyl alcohol ophthalmic drops 15ml bottle LEFTEYE SCH (20:32)
[2023-06-23] MEDS: insulin glargine (Lantus) pen - multi-dose SQ SCH (21:00)
[2023-06-23] MEDS: ROPINIRole 0.25mg tablet PO SCH (21:48)
[2023-06-23] MEDS: nortriptyline 25mg capsule PO SCH (21:48)
[2023-06-23 22:00] VITALS: BP 90/43; PULSE 94; RESP 12; TEMP 97.1; O2SAT 94
[2023-06-24] VITALS (8 sets, daily range): BP systolic 96–156; BP diastolic 50–59; PULSE 85–105; RESP 16–18; TEMP 98.4–99.8; O2SAT 94–98
[2023-06-24] MEDS: vancomycin/NS 1 GM ADD-VANTAGE 250 ML IV SCH ×3 (01:36→16:35)
[2023-06-24] MEDS: diphenoxylate/atropine tablet (Lomotil) PO SCH ×3 (02:00→09:13)
[2023-06-24] MEDS: acetaminophen 325mg tablet PO PRN ×2 (04:21→20:35)
[2023-06-24] MEDS: budesonide 0.5mg/2ml UD nebule IH SCH ×2 (07:29→19:14)
[2023-06-24] MEDS: K and/or MAG REPLACEMENT MC SCH ×2 (08:00→19:08)
[2023-06-24] MEDS: METHOCARBAMOL PO SCH ×2 (08:00→19:10)
[2023-06-24] MEDS: cefepime 2g/NS 100ml ADVANTAGE 100 ML IV SCH ×2 (09:01→20:05)
[2023-06-24] MEDS: pantoprazole 40mg Tablet.DR PO SCH (09:01)
[2023-06-24] MEDS: diltiazem CD 180mg cap (once-daily) PO SCH (09:03)
[2023-06-24] MEDS: gabapentin 100mg capsule PO SCH ×2 (09:04→20:05)
[2023-06-24] MEDS: losartan 25mg tablet PO SCH ×3 (09:04→20:10)
[2023-06-24] MEDS: meclizine 12.5mg tablet PO SCH ×3 (09:06→09:42)
[2023-06-24] MEDS: insulin Lispro (HumaLOG) vial - multi-dose SQ SCH ×3 (09:17→18:46)
[2023-06-24] MEDS ORDERED: MECL-226 PO (09:54)
[2023-06-24] MEDS ORDERED: LOSA-415 PO (09:54)
[2023-06-24] MEDS ORDERED: meclizine 12.5mg tablet PO PRN (09:55)
[2023-06-24] MEDS ORDERED: diphenoxylate/atropine tablet (Lomotil) PO PRN (09:55)
[2023-06-24] MEDS: PRAVASTATIN 20 MG PO SCH (10:21)
[2023-06-24] MEDS ORDERED: normal saline 1000ml 1,000 ML IV SCH (11:00)
[2023-06-24] MEDS: polyvinyl alcohol ophthalmic drops 15ml bottle LEFTEYE SCH (19:58)
[2023-06-24] MEDS: enoxaparin 40mg/0.4ml syringe SQ SCH (19:58)
[2023-06-24] MEDS: nortriptyline 25mg capsule PO SCH (20:36)
[2023-06-24] MEDS: ROPINIRole 0.25mg tablet PO SCH (20:36)
[2023-06-24] MEDS: insulin glargine (Lantus) pen - multi-dose SQ SCH (21:12)
[2023-06-25] VITALS (9 sets, daily range): BP systolic 110–146; BP diastolic 48–64; PULSE 86–99; RESP 15–18; TEMP 98.1–100; O2SAT 95–100
[2023-06-25] MEDS: vancomycin/NS 1 GM ADD-VANTAGE 250 ML IV SCH ×3 (01:31→18:17)
[2023-06-25] MEDS: cefepime 2g/NS 100ml ADVANTAGE 100 ML IV SCH (07:56)
[2023-06-25] MEDS: gabapentin 100mg capsule PO SCH ×2 (07:56→20:44)
[2023-06-25] MEDS: diltiazem CD 180mg cap (once-daily) PO SCH (07:56)
[2023-06-25] MEDS: PRAVASTATIN 20 MG PO SCH (07:57)
[2023-06-25] MEDS: pantoprazole 40mg Tablet.DR PO SCH (07:59)
[2023-06-25] MEDS: METHOCARBAMOL PO SCH ×2 (08:00→20:00)
[2023-06-25] MEDS: K and/or MAG REPLACEMENT MC SCH ×2 (08:00→20:00)
[2023-06-25] MEDS: budesonide 0.5mg/2ml UD nebule IH SCH ×2 (08:13→20:04)
[2023-06-25] MEDS: insulin Lispro (HumaLOG) vial - multi-dose SQ SCH ×3 (09:01→19:02)
[2023-06-25] MEDS: enoxaparin 40mg/0.4ml syringe SQ SCH (20:00)
[2023-06-25] MEDS: losartan 25mg tablet PO SCH (20:45)
[2023-06-25] MEDS: insulin glargine (Lantus) pen - multi-dose SQ SCH (20:48)
[2023-06-25] MEDS: acetaminophen 325mg tablet PO PRN (20:50)
[2023-06-25] MEDS: polyvinyl alcohol ophthalmic drops 15ml bottle LEFTEYE SCH (21:00)
[2023-06-25] MEDS: nortriptyline 25mg capsule PO SCH (22:21)
[2023-06-25] MEDS: ROPINIRole 0.25mg tablet PO SCH (22:21)
[2023-06-26] VITALS (8 sets, daily range): BP systolic 110–139; BP diastolic 35–61; PULSE 88–94; RESP 15–20; TEMP 96.7–99.6; O2SAT 95–99
[2023-06-26] MEDS: vancomycin/NS 1 GM ADD-VANTAGE 250 ML IV SCH ×3 (01:28→17:26)
[2023-06-26] MEDS: K and/or MAG REPLACEMENT MC SCH ×2 (08:00→20:00)
[2023-06-26] MEDS: METHOCARBAMOL PO SCH ×2 (08:00→20:00)
[2023-06-26] MEDS: pantoprazole 40mg Tablet.DR PO SCH (08:00)
[2023-06-26] MEDS: PRAVASTATIN 20 MG PO SCH (08:02)
[2023-06-26] MEDS: gabapentin 100mg capsule PO SCH ×2 (08:03→21:21)
[2023-06-26] MEDS: diltiazem CD 180mg cap (once-daily) PO SCH (08:03)
[2023-06-26] MEDS: budesonide 0.5mg/2ml UD nebule IH SCH ×2 (08:49→21:06)
[2023-06-26 09:40] LABS: BASOPHILS % (AUTO) 0.5 % (0-1); EOSINOPHILS % (AUTO) 1.4 % (0-6); HEMOGLOBIN 8.7 g/dl (12.0-16.0); LYMPHOCYTES # (AUTO) 0.3 X10'3 (1.1-4.8); MEAN CORPUSCULAR HEMOGLOBIN 31.4 PG (27.0-31.0); MEAN CORPUSCULAR HGB CONC 33.3 g/dL (33.0-36.5); MEAN CORPUSCULAR VOLUME 94.1 FL (78-98); MEAN PLATELET VOLUME 7.3 FL (7.4-10.4); MONOCYTES # (AUTO) 0.1 X10'3 (0-0.9); NEUTROPHILS % (AUTO) 79.1 % (42-75); PLATELET COUNT 304 X10'3 (140-440); RED BLOOD COUNT 2.77 X10'6 (4.20-5.60); RED CELL DISTRIBUTION WIDTH 17.9 % (11.5-14.5); WHITE BLOOD COUNT 2.5 X10'3 (4.5-11.0)
[2023-06-26 09:55] LABS: ALANINE AMINOTRANSFERASE 18 U/L (12-78); ALBUMIN 1.6 G/DL (3.4-5.0); ALBUMIN/GLOBULIN RATIO 0.5 (1.1-1.5); ALKALINE PHOSPHATASE 44 IU/L (46-116); ANION GAP 8 (8-16); ASPARTATE AMINO TRANSFERASE 52 U/L (10-37); BILIRUBIN,TOTAL 0.5 MG/DL (0.1-1.0); BLOOD UREA NITROGEN 8 MG/DL (7-18); BUN/CREATININE RATIO 11.9 (10.0-20.0); C-REACTIVE PROTEIN 6.52 MG/DL (0.0-0.5); CALCIUM 7.9 MG/DL (8.5-10.1); CHLORIDE 102 MMOL/L (99-107); CREATININE 0.67 MG/DL (0.40-0.90); GLUCOSE 142 MG/DL (70-104); SODIUM 133 MMOL/L (135-145); TOTAL CARBON DIOXIDE 22.6 MMOL/L (24-32); TOTAL PROTEIN 5.1 G/DL (6.4-8.2); eCRCL 73 ML/MIN; eGFR 89 ML/MIN
[2023-06-26 09:57] LABS: POTASSIUM 3.6 MMOL/L (3.5-5.1)
[2023-06-26 10:15] LABS: ANISOCYTOSIS 1+; PLATELET ESTIMATE NORMAL; TOTAL CELLS COUNTED 100
[2023-06-26 10:16] LABS: ELLIPTOCYTES FEW; ROULEAUX 1+; SMUDGE CELLS FEW; TOXIC GRANULATION 1+
[2023-06-26] MEDS: insulin Lispro (HumaLOG) vial - multi-dose SQ SCH ×2 (14:30→19:23)
[2023-06-26] MEDS: enoxaparin 40mg/0.4ml syringe SQ SCH (20:00)
[2023-06-26] MEDS: polyvinyl alcohol ophthalmic drops 15ml bottle LEFTEYE SCH (21:00)
[2023-06-26] MEDS: losartan 25mg tablet PO SCH (21:17)
[2023-06-26] MEDS: nortriptyline 25mg capsule PO SCH (21:17)
[2023-06-26] MEDS: acetaminophen 325mg tablet PO PRN (21:20)
[2023-06-26] MEDS: ROPINIRole 0.25mg tablet PO SCH (21:21)
[2023-06-26] MEDS: insulin glargine (Lantus) pen - multi-dose SQ SCH (21:30)
[2023-06-27] MEDS: vancomycin/NS 1 GM ADD-VANTAGE 250 ML IV SCH ×2 (00:57→09:30)
[2023-06-27] MEDS: acetaminophen 325mg tablet PO PRN (04:47)
[2023-06-27 05:59] VITALS: BP 108/35; PULSE 87; RESP 18; TEMP 96.3; O2SAT 99
[2023-06-27 08:00] VITALS: RESP 15; O2SAT 95
[2023-06-27] MEDS: METHOCARBAMOL PO SCH (08:00)
[2023-06-27] MEDS: K and/or MAG REPLACEMENT MC SCH (08:00)
[2023-06-27] MEDS: budesonide 0.5mg/2ml UD nebule IH SCH (09:24)
[2023-06-27 09:25] VITALS: PULSE 76; RESP 16; O2SAT 98
[2023-06-27 09:32] VITALS: PULSE 82; RESP 16
[2023-06-27 09:34] LABS: BASOPHILS % (AUTO) 0.9 % (0-1); EOSINOPHILS # (AUTO) 0.1 X10'3 (0-0.9); EOSINOPHILS % (AUTO) 2.7 % (0-6); HEMATOCRIT 26.2 % (35.0-45.0); HEMOGLOBIN 8.7 g/dl (12.0-16.0); LYMPHOCYTES # (AUTO) 0.4 X10'3 (1.1-4.8); LYMPHOCYTES % (AUTO) 17.2 % (21-51); MEAN CORPUSCULAR HEMOGLOBIN 30.8 PG (27.0-31.0); MEAN CORPUSCULAR HGB CONC 33.3 g/dL (33.0-36.5); MEAN CORPUSCULAR VOLUME 92.4 FL (78-98); MEAN PLATELET VOLUME 7.1 FL (7.4-10.4); MONOCYTES # (AUTO) 0.1 X10'3 (0-0.9); MONOCYTES % (AUTO) 5.8 % (2-12); NEUTROPHILS # (AUTO) 1.6 X10'3 (1.8-7.7); NEUTROPHILS % (AUTO) 73.4 % (42-75); PLATELET COUNT 408 X10'3 (140-440); RED BLOOD COUNT 2.84 X10'6 (4.20-5.60); RED CELL DISTRIBUTION WIDTH 17.4 % (11.5-14.5); WHITE BLOOD COUNT 2.2 X10'3 (4.5-11.0)
[2023-06-27 09:49] LABS: ALANINE AMINOTRANSFERASE 20 U/L (12-78); ALBUMIN 1.7 G/DL (3.4-5.0); ALBUMIN/GLOBULIN RATIO 0.5 (1.1-1.5); ALKALINE PHOSPHATASE 48 IU/L (46-116); ANION GAP 6 (8-16); ASPARTATE AMINO TRANSFERASE 30 U/L (10-37); BILIRUBIN,TOTAL 0.4 MG/DL (0.1-1.0); BLOOD UREA NITROGEN 8 MG/DL (7-18); BUN/CREATININE RATIO 10.4 (10.0-20.0); CHLORIDE 103 MMOL/L (99-107); CREATININE 0.77 MG/DL (0.40-0.90); GLUCOSE 125 MG/DL (70-104); POTASSIUM 3.2 MMOL/L (3.5-5.1); SODIUM 136 MMOL/L (135-145); TOTAL CARBON DIOXIDE 26.8 MMOL/L (24-32); TOTAL PROTEIN 5.1 G/DL (6.4-8.2); eCRCL 63 ML/MIN; eGFR 76 ML/MIN
[2023-06-27] MEDS: pantoprazole 40mg Tablet.DR PO SCH (09:51)
[2023-06-27] MEDS: gabapentin 100mg capsule PO SCH (09:51)
[2023-06-27] MEDS: PRAVASTATIN 20 MG PO SCH (09:52)
[2023-06-27 10:00] VITALS: BP 128/69; PULSE 76; RESP 16; TEMP 97.1; O2SAT 96
[2023-06-27 10:14] LABS: ANISOCYTOSIS 1+; PLATELET ESTIMATE NORMAL; TOTAL CELLS COUNTED 100
[2023-06-27 10:15] LABS: ELLIPTOCYTES FEW; SCHISTOCYTES FEW
[2023-06-27 10:16] LABS: SMUDGE CELLS FEW
[2023-06-27] MEDS ORDERED: LOSA25TA41 PO (13:11)
[2023-06-27] MEDS ORDERED: DOXY-243 PO (13:11)
[2023-06-27 14:30] VITALS: RESP 20; O2SAT 98
[2023-06-27] MEDS ORDERED: POTA-207 PO (15:57)
[2023-06-28] MEDS ORDERED: VANCOMYCIN LEVEL IV ONE (16:30)
== END 2023-06-27 15:05 | disposition home or self-care (01) | DRG 383 ==
LOC: ER 23:58 → ED HOLD 06-17 08:16 → EDBEDREQ 06-17 17:55 → ORTHO 4S 06-17 18:50
PROVIDERS: ADMIT Family Medicine; ATTEND Family Medicine
DX: L03.116 Cellulitis of left lower limb (principal); N17.9 Acute kidney failure, unspecified; E11.42 Type 2 diabetes mellitus with diabetic polyneuropathy; Z68.43 Body mass index [BMI] 50.0-59.9, adult; E11.65 Type 2 diabetes mellitus with hyperglycemia; E66.9 Obesity, unspecified; I10 Essential (primary) hypertension; J45.909 Unspecified asthma, uncomplicated; K51.90 Ulcerative colitis, unspecified, without complications; M79.7 Fibromyalgia; N28.9 Disorder of kidney and ureter, unspecified; Z79.51 Long term (current) use of inhaled steroids; Z79.620 Long term (current) use of immunosuppressive biologic; Z79.84 Long term (current) use of oral hypoglycemic drugs; Z80.0 Family history of malignant neoplasm of digestive organs; Z80.1 Family history of malignant neoplasm of trachea, bronchus and lung; Z88.0 Allergy status to penicillin; Z80.8 Family history of malignant neoplasm of other organs or systems; Z82.49 Family history of ischemic heart disease and other diseases of the circulatory system; Z83.3 Family history of diabetes mellitus; Z87.11 Personal history of peptic ulcer disease
CPT/HCPCS: 36410; 36415; 73700; 73701; 76937; 80053; 80202; 82948; 83036; 83605; 83735; 84145; 85007; 85008; 85025; 85651; 86140; 87040; 87081; 93926; 93971; 94640; 94760; 97110; 97161; 97530; 97535; 99285; A6212; A6213; A6258; C1751; G0378; J0692; J1815; J1956; J2270; J2405; J3370; J3490; J7030; J7040; J8597; J8610; Q9967